=== PATIENT | female | born 1955 | race Caucasian/White ===

== ENCOUNTER 2021-12-17 12:27 | Emergency (ER) | payer OTHER ==
[2021-12-17 12:58] VITALS: BP 177/83; PULSE 81; TEMP 98.3; BMI 29.7
[2021-12-17 14:33] LABS: BASO % 0.5 % (0-2.0); EOS % 1.7 % (0-4.5); HEMATOCRIT 35.6 % (32.4-45.2); HEMOGLOBIN 11.4 GM/dL (10.7-15.3); LYMPH % 28.2 % (8-40); MCH 25.2 pg (25.7-33.7); MCHC 31.9 g/dl (32.0-36.0); MEAN CELL VOLUME 78.9 fl (80-96); MEAN PLT VOLUME 10.4 fl (7.5-11.1); MONO % 6.5 % (3.8-10.2); NEUT % 63.1 % (42.8-82.8); PLATELET COUNT 174 10^3/uL (134-434); RBC 4.51 M/mm3 (3.60-5.2); RDW 14.7 % (11.6-15.6); WHITE BLOOD COUNT 8.3 K/mm3 (4.0-10.0)
[2021-12-17 14:42] LABS: ALBUMIN 3.7 g/dl (3.4-5.0)
[2021-12-17 14:43] LABS: BILIRUBIN,TOTAL 0.8 mg/dL (0.2-1); BLOOD UREA NITROGEN 13.3 mg/dL (7-18); CREATININE 0.8 mg/dL (0.55-1.3)
== END 2021-12-17 16:11 | disposition home or self-care (01) ==
LOC: JER 12:27
DX: M25.511 Pain in right shoulder (principal); M25.552 Pain in left hip; W01.0XXA Fall on same level from slipping, tripping and stumbling without subsequent striking against object, initial encounter
CPT/HCPCS: 36415; 80053; 85025; 93005; 93010; 99284-25